=== PATIENT | female | born 1980 | race Caucasian/White ===

== ENCOUNTER 2017-08-27 09:55 | Inpatient (IN) | payer OTHER ==
[~2017-08-27] VITALS: Ht 161 cm; Wt 70.3 kg
[2017-08-27 10:26] VITALS: BP 111/73
[2017-08-27] MEDS ORDERED: LEVO125 PO (10:26)
[2017-08-27] MEDS ORDERED: PNV11TAB PO (10:26)
[2017-08-27] MEDS ORDERED: FOLI0.4T4 PO (10:26)
[2017-08-27] MEDS ORDERED: OXYTOCIN 30 UNITS/LACT RINGERS 500 ML IV ONE ×2 (10:42→15:38)
[2017-08-27] MEDS ORDERED: RINGERS SOLUTION,LACTATED 1,000 ML IV PRN (10:42)
[2017-08-27] MEDS ORDERED: METOCLOPRAMIDE HCL 5 MG/ML 2 ML VIAL IVP PRN (10:45)
[2017-08-27] MEDS ORDERED: CITRIC ACID/SODIUM CITRATE 30 ML SOLUTION UDCUP PO PRN (10:45)
[2017-08-27] MEDS ORDERED: LIDOCAINE HCL/PF 1% 30 ML VIAL INJ PRN (10:45)
[2017-08-27] MEDS ORDERED: METHYLERGONOVINE MALEATE 0.2 MG/ML VIAL IM PRN (10:45)
[2017-08-27] MEDS ORDERED: DINOPROSTONE 10 MG VAGINAL SUPPOSITORY VG ONE (10:45)
[2017-08-27] MEDS ORDERED: RINGERS SOLUTION,LACTATED 1,000 ML IV ONE (10:48)
[2017-08-27 11:18] LABS: BASOPHILS # (AUTO) 0.02 K/uL (0.00-0.20); BASOPHILS % (AUTO) 0.3 % (0.0-2.0); EOSINOPHILS % (AUTO) 1.32 % (1.0-6.0); HEMATOCRIT 39.6 % (36-46); HEMOGLOBIN 13.3 g/dL (12.0-16.0); LYMPHOCYTES # (AUTO) 1.1 K/uL (1.0-4.8); LYMPHOCYTES % (AUTO) 15.3 % (22.0-44.0); MEAN CORPUSCULAR HGB CONC 33.5 G/dL (31.0-37.0); MEAN CORPUSCULAR VOLUME 93 fL (80-100); MONOCYTES # (AUTO) 0.8 K/uL (0.1-1.0); MONOCYTES % (AUTO) 10.7 % (2.0-9.0); NEUTROPHILS # (AUTO) 5.4 K/uL (1.8-7.7); NEUTROPHILS % (AUTO) 72.4 % (40.0-70.0); RED BLOOD CELL COUNT(AUTO) 4.28 MIL/uL (4.00-5.20); RED CELL DISTRIBUTION WIDTH 13.6 % (11.5-14.5); WHITE BLOOD COUNT (AUTO) 7.4 K/uL (4.5-11.0)
[2017-08-27] MEDS: RINGERS SOLUTION,LACTATED 1,000 ML IV SCH ×3 (11:25→23:38)
[2017-08-27 11:39] LABS: THYROID STIMULATING HORMONE 2.12 uIU/mL (0.36-3.74)
[2017-08-27] MEDS ORDERED: DEXAMETHASONE SOD PHOS 4 MG/ML VIAL IVP ONE (12:00)
[2017-08-27] MEDS ORDERED: PHENYLEPHRINE HCL 10 MG/ML VIAL IVP ONE (12:00)
[2017-08-27] MEDS ORDERED: ONDANSETRON HCL 4 MG/2 ML VIAL IVP ONE (12:00)
[2017-08-27] MEDS ORDERED: OXYTOCIN 10 UNITS/ML VIAL IM ONE (12:00)
[2017-08-27] MEDS ORDERED: EPHEDrine SULFATE 50 MG/ML VIAL IM ONE (12:00)
[2017-08-27] MEDS ORDERED: KETOROLAC TROMETHAMINE 60 MG/2 ML VIAL IM ONE (12:00)
[2017-08-27] MEDS ORDERED: TERBUTALINE SULFATE 1 MG/ML VIAL ONE (14:44)
[2017-08-27] MEDS ORDERED: MORPHINE SULFATE/PF 0.5 MG/ML 10 ML AMP ONE (14:50)
[2017-08-27] MEDS ORDERED: FentaNYL CITRATE-PF 100 MCG/2 ML VIAL ONE (14:50)
[2017-08-27] MEDS ORDERED: CeFAZolin 2 GM/DEXTROSE 50 ML IV ONE (14:51)
[2017-08-27] MEDS ORDERED: GUM MASTIC/STORAX/MSAL/ALCOHOL LIQUID 0.67 ML VIAL TP ONE (15:06)
[2017-08-27] MEDS ORDERED: OxyCODONE HCL/ACETAMINOPHEN 5-325 MG TABLET PO PRN ×2 (15:45)
[2017-08-27] MEDS ORDERED: DiphenhydrAMINE HCL 50 MG/ML VIAL IM PRN (15:45)
[2017-08-27] MEDS ORDERED: MEPERIDINE-PF 25 MG/ML SYRINGE IVP PRN (15:45)
[2017-08-27] MEDS ORDERED: DEXAMETHASONE SOD PHOS 4 MG/ML VIAL IVP PRN (15:45)
[2017-08-27] MEDS ORDERED: ONDANSETRON HCL 4 MG/2 ML VIAL IVP PRN ×2 (15:45)
[2017-08-27] MEDS ORDERED: NALOXONE HCL 0.4 MG/ML VIAL IVP PRN (15:45)
[2017-08-27] MEDS ORDERED: DiphenhydrAMINE HCL 50 MG/ML VIAL IVP PRN ×2 (15:45)
[2017-08-27] MEDS ORDERED: FentaNYL CITRATE-PF 100 MCG/2 ML VIAL IVP PRN ×4 (15:45)
[2017-08-27] MEDS ORDERED: MORPHINE SULFATE 2 MG/ML SYRINGE IVP PRN (15:45)
[2017-08-27] MEDS ORDERED: LANOLIN 7 GM OINTMENT TP PRN (15:45)
[2017-08-27] MEDS ORDERED: NALBUPHINE HCL 10 MG/ML VIAL IVP PRN ×3 (15:45)
[2017-08-27] MEDS ORDERED: PROMETHAZINE HCL 12.5 MG in SODIUM CHLORIDE 0.9% 50 ML IV PRN (15:45)
[2017-08-27] MEDS ORDERED: OXYGEN THERAPY IH SCH ×4 (20:00)
[2017-08-27] MEDS: KETOROLAC TROMETHAMINE 30 MG/ML VIAL IVP SCH (21:27)
[2017-08-27] MEDS: MAGNESIUM HYDROXIDE SUSPENSION 30 ML UDCUP PO SCH (21:56)
[2017-08-27] MEDS ORDERED: -PHARMACY NOTE- MISC ONE ×2 (22:45)
[2017-08-28] MEDS: RINGERS SOLUTION,LACTATED 1,000 ML IV SCH (01:10)
[2017-08-28] MEDS: KETOROLAC TROMETHAMINE 30 MG/ML VIAL IVP SCH (03:18)
[2017-08-28 05:51] LABS: EOSINOPHILS % (AUTO) 0 % (1.0-6.0); HEMATOCRIT 29.4 % (36-46); HEMOGLOBIN 10.1 g/dL (12.0-16.0); LYMPHOCYTES # (AUTO) 1.3 K/uL (1.0-4.8); MEAN CORPUSCULAR HEMOGLOBIN 31.7 pg (26.0-34.0); MEAN CORPUSCULAR HGB CONC 34.5 G/dL (31.0-37.0); MEAN CORPUSCULAR VOLUME 92 fL (80-100); MONOCYTES # (AUTO) 0.9 K/uL (0.1-1.0); MONOCYTES % (AUTO) 5.2 % (2.0-9.0); NEUTROPHILS # (AUTO) 15.8 K/uL (1.8-7.7); RED BLOOD CELL COUNT(AUTO) 3.19 MIL/uL (4.00-5.20); RED CELL DISTRIBUTION WIDTH 13.6 % (11.5-14.5)
[2017-08-28 05:58] LABS: NEUTROPHILS % (AUTO) 87.8 % (40.0-70.0)
[2017-08-28] MEDS: LEVOTHYROXINE SODIUM 100 MCG TABLET PO SCH (06:37)
[2017-08-28] MEDS: MAGNESIUM HYDROXIDE SUSPENSION 30 ML UDCUP PO SCH ×2 (09:51→20:58)
[2017-08-28] MEDS: IBUPROFEN 800 MG TABLET PO PRN ×2 (14:43→20:59)
[2017-08-29] MEDS: LEVOTHYROXINE SODIUM 100 MCG TABLET PO SCH (06:32)
[2017-08-29] MEDS: IBUPROFEN 800 MG TABLET PO PRN ×2 (06:33→13:40)
[2017-08-29] MEDS: MAGNESIUM HYDROXIDE SUSPENSION 30 ML UDCUP PO SCH (09:00)
== END 2017-08-29 13:50 | disposition home or self-care (01) | DRG 766 ==
LOC: 4S 09:55 → OBSVTOIN 09:55 → 4S 17:40
PROVIDERS: ADMIT Obstetrics & Gynecology; ATTEND Obstetrics & Gynecology
PROC: 10D00Z1 Extraction of Products of Conception, Low, Open Approach (ICD-10-PCS; principal; 2017-08-27)
DX: O77.0 Labor and delivery complicated by meconium in amniotic fluid (principal); O09.513 Supervision of elderly primigravida, third trimester; Z37.0 Single live birth; Z3A.39 39 weeks gestation of pregnancy
CPT/HCPCS: 84436; 84443; 86850; 86900; 86901; J0690; J1100; J1885; J2274; J2370; J2405; J2590; J2765; J3010; J3105; J3490; J7120